=== PATIENT | female | born 1945 | race Caucasian/White ===

== ENCOUNTER 2020-08-05 16:39 | Outpatient (REF) | payer MEDICARE, BC, SELFPAY ==
[2020-08-05 19:33] LABS: BUN 19 mg/dL (7-18); CREATININE 0.7 mg/dL (0.55-1.02); Calcium 9.8 mg/dL (8.5-10.1); Chloride 108 mmol/L (98-107); Glucose 103 mg/dL (74-106); Potassium 4.4 mmol/L (3.5-5.1); Sodium 143 mmol/L (136-145)
== END 2020-08-05 16:40 | disposition home or self-care (01) ==
LOC: NCHCN 16:39
PROVIDERS: Visit Provider Family Medicine
DX: I10 Essential (primary) hypertension (principal)
CPT/HCPCS: 80048

== ENCOUNTER 2022-02-03 15:33 | Outpatient (REF) | payer MEDICARE, BC, SELFPAY ==
[2022-02-03 16:58] LABS: Anion Gap 8.4 mmol/L (3-11); BUN 20 mg/dL (7-18); CO2 28.6 mmol/L (21.0-32.0); CREATININE 0.7 mg/dL (0.55-1.02); Calcium 9.5 mg/dL (8.5-10.1); Chloride 106 mmol/L (98-107); Glucose 103 mg/dL (74-106); Potassium 4.8 mmol/L (3.5-5.1); Sodium 143 mmol/L (136-145)
[2022-02-03 17:20] LABS: Vitamin D 25 Total 54.5 ng/mL (30-100)
== END 2022-02-03 15:34 | disposition home or self-care (01) ==
LOC: NCHCN 15:33
PROVIDERS: Visit Provider Family Medicine
DX: M81.0 Age-related osteoporosis without current pathological fracture (principal); I10 Essential (primary) hypertension
CPT/HCPCS: 80048; 82306

== ENCOUNTER 2023-01-01 16:18 | Outpatient (REF) | payer MEDICARE, BC, SELFPAY ==
[2023-01-03 12:43] LABS: Campylobacter PCR Negative (Negative); Salmonella PCR Negative (Negative); Shiga Toxin PCR Negative (Negative); Shigella/Enteroinvasive Ecoli Negative (Negative)
[2023-01-05 20:11] LABS: Calprotectin <50.0 mcg/g
== END 2023-01-01 16:19 | disposition home or self-care (01) ==
LOC: NCHCN 16:18
PROVIDERS: Visit Provider Family Medicine
DX: R19.7 Diarrhea, unspecified (principal)
CPT/HCPCS: 87329; 87493; 87505; 83993

== ENCOUNTER 2023-08-10 14:15 | Outpatient (REF) | payer MEDICARE, BC, SELFPAY ==
[2023-08-10 19:26] LABS: Calculated LDL 61 mg/dL (<100); Cholesterol 149 mg/dL (<200); HDL Cholesterol 78 mg/dL (40-60); Triglyceride 52 mg/dL (<150)
== END 2023-08-10 14:16 | disposition home or self-care (01) ==
LOC: NCHCN 14:15
PROVIDERS: PCP Family Medicine; Visit Provider Family Medicine
DX: E78.5 Hyperlipidemia, unspecified (principal)
CPT/HCPCS: 80061

== ENCOUNTER 2023-12-11 01:18 | Outpatient (CLI) | payer MEDICARE, BC, SELFPAY ==
--- NOTE | 2023-12-11 | DI.MAMMO_ITS ---
Exam(s) MAMMO SCREENING EXAM: MAMMO SCREENING CLINICAL HISTORY: SCREENING, Z12.31 TECHNIQUE: Mammograms were interpreted according to the usual protocol including computer analysis w [facility] CAD system, tomosynthesis and C-view imaging. COMPARISON: [facility] BREAST SCREENING DAVID BILATERAL from 12/07/2022 and exams back to 2014 from [facility] FINDINGS: The breasts are composed of scattered fibroglandular densities, Breast Density category B. No suspicious masses or suspicious microcalcifications are seen. No skin thickening or abnormal axillary lymph nodes are seen. There has been no significant change from prior exams. IMPRESSION: BI-RADS Category 1, Negative mammogram Yearly screening mammography is recommended. Breast Density - Category B, scattered fibroglandular densities. A negative radiographic report should not delay biopsy if a dominant or clinically suspicious mass is present. Up to ten percent of cancers are not identified on mammography. A negative report may reinforce clinical impression. Adenosis and dense breasts may obscure an underlying neoplasm. False positive reports average 6 to 10%. Patient will receive a letter notifying them of these results.
== END 2023-12-11 01:38 ==
LOC: DI 01:18
PROVIDERS: PCP Family Medicine; Visit Provider Family Medicine
DX: Z12.31 Encounter for screening mammogram for malignant neoplasm of breast (principal)
CPT/HCPCS: 77063; 77067

== ENCOUNTER 2024-08-11 19:04 | Outpatient (REF) | payer MEDICARE, BC, SELFPAY ==
[2024-08-11 22:17] LABS: HCT 36.7 % (36.0-46.0); HGB 12.2 g/dL (11.2-15.7); MCH 30.4 pg (27.0-33.0); MCHC 33.2 % (32.0-36.0); MCV 92 fL (80-95); MPV 12.6 fL (8.0-11.0); Platelet Count 263 10^3/uL (130-400); RBC 4.01 10^6/uL (3.93-5.22); RDW 12.3 % (11.7-14.6); RDW-SD 41.5 fL; WBC 4.95 10^3/uL (4.4-10.8)
[2024-08-11 22:38] LABS: ALT 50 U/L (14-59); AST 32 U/L (15-37); Albumin 3.7 g/dL (3.4-5.0); Alkaline Phosphatase 121 U/L (46-116); Anion Gap 7.2 mmol/L (3-11); BUN 19 mg/dL (7-18); Bilirubin, Total 0.3 mg/dL (0.2-1.0); CO2 26.8 mmol/L (21.0-32.0); CREATININE 0.7 mg/dL (0.55-1.02); Calcium 9.8 mg/dL (8.5-10.1); Chloride 108 mmol/L (98-107); Estimated GFR 89.02 (mL/min/1.73m2); Glucose 109 mg/dL (74-106); NT-proBNP 171 pg/mL (<300); Potassium 4.3 mmol/L (3.5-5.1); Sodium 142 mmol/L (136-145); Total Protein 6.7 g/dL (6.4-8.2)
[2024-08-13 09:47] LABS: Lyme Ab w Rflx to Lyme Confirm Negative (Negative)
[2024-08-14 16:29] LABS: Spotted Fever Group Ab IgG <1:64 (<1:64); Spotted Fever Group Ab IgM <1:64 (<1:64)
[2024-08-15 01:35] LABS: Anaplasma phagocytophilum Negative (Negative); B. miyamotoi PCR Negative (Negative); Babesia divergens/MO-1 Negative (Negative); Babesia duncani Negative (Negative); Babesia microti Negative (Negative); Ehrlichia chaffeensis Negative (Negative); Ehrlichia ewingii/canis Negative (Negative); Ehrlichia muris eauclairensis Negative (Negative)
== END 2024-08-11 19:05 | disposition home or self-care (01) ==
LOC: NCHCN 19:04
PROVIDERS: PCP Family Medicine; Visit Provider Family Medicine
DX: R06.09 Other forms of dyspnea (principal); M25.59 Pain in other specified joint
CPT/HCPCS: 80053; 85027; 87798; 83880; 86618; 86757

== ENCOUNTER 2024-08-19 19:23 | Emergency (ER) | payer MEDICARE, BC, SELFPAY ==
[2024-08-19] VITALS (22 sets, daily range): BP systolic 115–167; BP diastolic 33–59; PULSE 75–109; RESP 8–22; TEMP 37–37.2; O2SAT 91–97
--- NOTE | 2024-08-19 19:30 | DI.CT_ITS ---
Exam(s) CT ABDOMEN PELVIS W EXAM: CT ABDOMEN PELVIS W CLINICAL HISTORY: llq pain fever TECHNIQUE: Imaging Protocol: Axial computed tomography images with coronal and sagittal reformatted images were created and reviewed. CONTRAST MATERIAL: Intravenous: Omnipaque 350 Contrast volume:75 mL Oral: No COMPARISON: No exams were available for comparison FINDINGS: ABDOMEN: Lung Bases: No acute abnormality. Liver: Normal density. No measurable mass. Portal, Superior Mesenteric, and Splenic Veins: Unremarkable. Gallbladder and Biliary Tract: Gallstones are present. There is no significant biliary ductal dilata tion. Pancreas: Normal density, no abnormal calcifications or inflammatory process. Spleen: Normal. There is a benign type calcification in the spleen. Adrenals: No masses seen. Kidneys: Normal size, contour and axis. No radiodense stones or obstructive uropathy. No masses seen. There is a duplicated right renal collecting system. Abdominal Aorta: Abdominal portion non-dilated. Atherosclerotic calcification is present. Bowel: There is diverticulosis of the colon. There is bowel wall thickening and pericolonic inflamma tory change seen in the mid sigmoid colon consistent with acute diverticulitis. There is no evidence of bowel obstruction. The stomach is incompletely distended limiting evaluation. Appendix is unrem arkable. Peritoneal Cavity: No ascites, collection or mesenteric inflammatory response. No free air. Lymph Nodes: Within normal limits. Bones: Within normal limits for the patient's age. Soft Tissues: Unremarkable. There is a small fat containing umbilical hernia. PELVIS: Bladder: Symmetric distention, no gross wall thickening. Reproductive Organs: Unremarkable as visualized. Lymph Nodes: Within normal limits. Bones: Within normal limits for the patient's age. IMPRESSION: 1. Acute diverticulitis involving the sigmoid colon. No abscess or free air. 2. The preliminary [facility] report was reviewed. RADIATION DOSE DELIVERED: 460.36mGy.cm Total DLP DATA REPOSITORY: All CT scans at this facility are submitted to the National Radiology Data Registry (NRDR) Dose Index Registry (DIR) with the [employer] (A[employer]). RADIATION OPTIMIZATION: All CT scans at this facility use at least one of these dose optimization te chniques: automated exposure control; mA and/or kV adjustment per patient size (includes targeted exa ms where dose is matched to clinical indication); or iterative reconstruction.
[2024-08-19] MEDS: Normal Saline 1,000 ML 1000 ML IV (19:53)
[2024-08-19 19:54] LABS: Abs Immature Grans 0.05 10^3/uL (0.0-0.06); Absolute Basophil Count 0.04 10^3/uL (0.0-0.2); Absolute Eosinophil Count 0.04 10^3/uL (0.0-0.7); Absolute Lymphocyte Count 1.39 10^3/uL (1.2-3.4); Absolute Monocyte Count 0.88 10^3/uL (0.1-0.8); Absolute Neutrophil Count 9.29 10^3/uL (1.2-6.7); Basophils % 0.3 %; Eosinophils % 0.3 %; HCT 37.5 % (36.0-46.0); HGB 12.5 g/dL (11.2-15.7); Immature Grans % 0.4 %; Lymphocytes % 11.9 %; MCH 30.3 pg (27.0-33.0); MCHC 33.3 % (32.0-36.0); MCV 91 fL (80-95); MPV 11.5 fL (8.0-11.0); Monocytes % 7.5 %; Neutrophils % 79.6 %; Platelet Count 253 10^3/uL (130-400); RBC 4.12 10^6/uL (3.93-5.22); RDW 12.4 % (11.7-14.6); RDW-SD 41.4 fL; WBC 11.67 10^3/uL (4.4-10.8)
[2024-08-19] MEDS: Normal Saline Flush 10 ML SYR IVP ×2 (19:54→20:27)
[2024-08-19] MEDS: MORPHine 4 MG/ML SYR IVP (19:54)
[2024-08-19] MEDS: Ondansetron 4 MG/2 ML VIAL IVP (19:54)
[2024-08-19 20:04] LABS: INR 1.1 (0.9-1.1); Prothrombin Time 10.6 sec (9.1-11.1)
[2024-08-19 20:08] LABS: ESR 20 mm/hr (0-30)
--- NOTE | 2024-08-19 20:08 | ED.GENADUL_ITS ---
Discharge Plan Disposition Patient Disposition: Home Discharge Details Clinical Impression: Diverticulitis Primary Care Provider: Lanny Wong ED Provider: Diaz Hoskins Home Meds and New Rx's Prescriptions: New metronidazole 500 mg tablet 500 mg PO BID 7 Days Qty: 14 0RF ciprofloxacin HCl 500 mg tablet 500 mg PO BID 7 Days Qty: 14 0RF No Action atorvastatin 10 mg tablet 10 mg PO DAILY Patient Comments: TAKE 1 TABLET BY MOUTH DAILY losartan 25 mg tablet 25 mg PO DAILY Discharge Instructions Instructions: Diverticulitis (DC) Additional Instructions: CT findings consistent with diverticulitis, but your lab work is reassuring. Continue clear liquid diet until symptoms resolved. Tylenol as needed for pain. First dose of antibiotics given in the emergency department tonight and the remainder has been sent to your pharmacy. Please return to the emergency department if your symptoms are worsening, fever or pain or you are not able to tolerate the medication. Otherwise follow-up with your PCP. referral has been placed to general surgery clinic for follow-up colonoscopy. HPI General Date/Time Provider Initiated Documentation: 08/19/24 19:25 . Limitations to Documentation: no limitations . Information obtained by: patient . HPI Narrative: 79-year-old female with past medical history of hypertension presents for evaluation of abdominal pain and fever. The patient reports that her symptoms started yesterday and have been progressively worsening. She reports generalized abdominal pain, worse in the left lower quadrant. Not associated with nausea or vomiting. She reports her stool has been soft, but no diarrhea and no blood in her stool. She reports that she had fever today. Had been taking Tylenol for pain but reports fairly significant pain. Related Data Home Medications ?Medication ?Instructions ?Recorded ?Confirmed atorvastatin 10 mg tablet 10 mg PO DAILY 08/19/24 08/19/24 ciprofloxacin HCl 500 mg tablet 500 mg PO BID 7 days #14 tabs 08/19/24 losartan 25 mg tablet 25 mg PO DAILY 08/19/24 08/19/24 metronidazole 500 mg tablet 500 mg PO BID 7 days #14 tabs 08/19/24 Previous Rx's ?Medication ?Instructions ?Recorded ciprofloxacin HCl 500 mg tablet 500 mg PO BID 7 days #14 tabs 08/19/24 metronidazole 500 mg tablet 500 mg PO BID 7 days #14 tabs 08/19/24 Allergies Allergy/AdvReac Type Severity Reaction Status Date / Time cephalexin (From Keflex) Allergy Mild rash Verified 08/19/24 19:31 Penicillins Allergy Mild rash Verified 08/19/24 19:31 General Stated Complaint: Abd Prob RADHA: 3 Exam Narrative Exam Narrative: Review of Systems: All systems reviewed & are unremarkable except as noted in HPI and below Well-developed, no acute distress afebrile NCAT RRR Unlabored respiratory effort, CTAB Nondistended abdomen , mild generalized tenderness Course Vital Signs Vital signs: Vital Signs Temperature 37.2 C 08/19/24 19:26 Pulse 109 H 08/19/24 19:26 Respiratory Rate 16 08/19/24 19:26 Blood Pressure 167/59 H 08/19/24 19:26 Pulse Oximetry 95 08/19/24 19:26 Temperature 37.2 C 08/19/24 19:32 Pulse 95 H 08/19/24 19:46 Pulse 100 H 08/19/24 19:46 Respiratory Rate 20 08/19/24 19:46 Blood Pressure 155/57 H 08/19/24 19:46 Blood Pressure Mean 88 08/19/24 19:46 Pulse Oximetry 96 08/19/24 19:46 Pain Level 5 08/19/24 19:42 Lab/Test Results Lab/Test Results: Laboratory Tests Range/Units 08/19/24 19:35 WBC (4.4-10.8) 10^3/uL 11.67 H RBC (3.93-5.22) 10^6/uL 4.12 Hgb (11.2-15.7) g/dL 12.5 Hct (36.0-46.0) % 37.5 MCV (80-95) fL 91 MCH (27.0-33.0) pg 30.3 MCHC (32.0-36.0) % 33.3 RDW (11.7-14.6) % 12.4 Plt Count (130-400) 10^3/uL 253 MPV (8.0-11.0) fL 11.5 H Immature Gran % % 0.4 Neutrophils % % 79.6 Lymphocytes % % 11.9 Monocytes % % 7.5 Eosinophils % % 0.3 Basophils % % 0.3 Nucleated RBC % (0.0-0.3) % 0.0 Absolute Neutrophils (1.2-6.7) 10^3/uL 9.29 H Absolute Lymphocytes (1.2-3.4) 10^3/uL 1.39 Absolute Monocytes (0.1-0.8) 10^3/uL 0.88 H Absolute Eosinophils (0.0-0.7) 10^3/uL 0.04 Absolute Basophils (0.0-0.2) 10^3/uL 0.04 PT (9.1-11.1) sec 10.6 INR (0.9-1.1) 1.1 Medical Decision Making Emergent evaluation of abdominal pain and fever. Initial differential includes diverticulitis, colitis, urinary tract infection. Mild abdominal pain. Symptoms consistent consistent with prior episodes of diverticulitis. Afebrile here mild tachycardia on presentation that improved in the room. Plan for labs laboratory markers and CT imaging. Will give IV fluids and pain control. Lab work reviewed. Mild leukocytosis. No anemia. No elevation in ESR, CRP slightly elevated at 7.3. CT scan reviewed and there is sign of sigmoid diverticulitis without signs of perforation or abscess development. The patient reports that she is feeling much better after treatment in the emergency department. She would like to go home for treatment. I think based on her lab work and vital signs this is a reasonable option. I will start her on antibiotics. Due to her penicillin allergy, will treat with Flagyl and ciprofloxacin. First dose given in the emergency department. Return pre cautions advised. The patient does have a colonoscopy scheduled in December, but have referred her to general surgery clinic for closer follow-up after resolution of her acute infection. Quality:SDOH Health Related Social Needs: No Data to Display PFSH All Active Problems (Updated 08/19/24 @ 21:11 by Diaz Hoskins MD) Diverticulitis (Chronic) Social History Smoking risk assessment performed?: No Substance use type: does not use
[2024-08-19 20:10] LABS: ALT 25 U/L (14-59); AST 17 U/L (15-37); Albumin 3.7 g/dL (3.4-5.0); Alkaline Phosphatase 98 U/L (46-116); BUN 15 mg/dL (7-18); CREATININE 0.8 mg/dL (0.55-1.02); Calcium 9.6 mg/dL (8.5-10.1); Chloride 104 mmol/L (98-107); Estimated GFR 75.84 (mL/min/1.73m2); Glucose 101 mg/dL (74-106); Potassium 3.8 mmol/L (3.5-5.1); Sodium 141 mmol/L (136-145)
[2024-08-19] MEDS: Omnipaque 350 MG/ML 100 ML BTL IJ (20:13)
[2024-08-19 20:18] LABS: C-Reactive Protein 7.31 mg/dL (<or=0.5); Lipase 30 U/L (<78)
[2024-08-19] MEDS: Normal Saline - Diluent 50 ML VIAL IJ (20:26)
--- NOTE | 2024-08-19 21:01 | DI.[facility]_ITS ---
PROCEDURE INFORMATION: Exam: CT Abdomen And Pelvis With Contrast Exam date and time: 08/19/2024 8:17 PM Age: 79 years old Clinical indication: Abdominal pain; Localized; Left lower quadrant (llq); Llq pain, fever TECHNIQUE: Imaging protocol: Computed tomography of the abdomen and pelvis with contrast. Radiation optimization: All CT scans at this facility use at least one of these dose optimization techniques: automated exposure control; mA and/or kV adjustment per patient size (includes targeted exams where dose is matched to clinical indication); or iterative reconstruction. Contrast material: OMNIPAQUE 350; Contrast volume: 75 ml; Contrast route: INTRAVENOUS (IV); COMPARISON: No relevant prior studies available. FINDINGS: Liver: Normal. No mass. Gallbladder and biliary ducts: Stones at the gallbladder. Pancreas: Normal. No ductal dilation. Spleen: Normal. No splenomegaly. Adrenal glands: Normal. No mass. Kidneys and ureters: Normal. No hydronephrosis. Stomach and bowel: Colonic diverticulosis. Wall thickening and inflammatory change at the sigmoid colon consistent with acute diverticulitis. No evidence of perforation at this time. Appendix: No evidence of appendicitis. Intraperitoneal space: Unremarkable. No free air. No significant fluid collection. Vasculature: Aorta demonstrates moderate atherosclerotic calcification. No abdominal aortic aneurysm. Lymph nodes: Unremarkable. No enlarged lymph nodes. Urinary bladder: Unremarkable as visualized. Reproductive: Unremarkable as visualized. Bones/joints: Grade 1 anterolisthesis L4-L5 which appears degenerative in nature. Soft tissues: Unremarkable. IMPRESSION: 1. Diverticulitis sigmoid colon. 2. Cholelithiasis. Dictated and Authenticated by: Miki Patterson MD. Orderin Aidee Roman MD
[2024-08-19] MEDS: Ciprofloxacin 500 MG TAB PO (21:14)
[2024-08-19] MEDS: metroNIDAZOLE 500 MG TAB PO (21:14)
[2024-08-19] MEDS: Ondansetron O.D.T. 4 MG TABEF, 3 TABS/BTL PO (21:15)
== END 2024-08-19 21:27 | disposition home or self-care (01) ==
PROVIDERS: Emergency Provider Emergency Medicine; PCP Family Medicine
DX: K57.32 Diverticulitis of large intestine without perforation or abscess without bleeding (principal); I10 Essential (primary) hypertension
CPT/HCPCS: 80053; 83690; 85652; 96361; 96374; 96375; 99285; 74177; 85025; 85610; 86140; J2270; J2405; J3490

== ENCOUNTER 2024-08-28 03:27 | Outpatient (CLI) | payer MEDICARE, BC, SELFPAY | END 2024-08-28 03:28 | disposition home or self-care (01) | LOC: RT 03:27 | PROVIDERS: PCP Family Medicine; Visit Provider Family Medicine | DX: G47.34 Idiopathic sleep related nonobstructive alveolar hypoventilation (principal) | CPT/HCPCS: 94762 ==

== ENCOUNTER 2024-09-05 00:27 | Outpatient (CLI) | payer MEDICARE, BC, SELFPAY ==
--- NOTE | 2024-09-05 | DI.US_ITS ---
APPROVED REPORT EXAM: Comprehensive 2D, Doppler, and color-flow Echocardiogram Patient Location: Out-Patient Guest Services Manager: Mary Brothers RDCS (AE) Indications: Other forms of dyspnea, Dyspnea on exertion, HTN Other Information Study Quality: Good Conclusion Normal left ventricular wall thickness and chamber size. Ejection fraction is 60 to 65%. Wall motio n is normal Normal right ventricular size and function Both atria are normal in size There is no structural or hemodynamically significant valvular disease Wall motion Left Ventricle The left ventricle is normal size. The left ventricular systolic function is normal. The left ventric ular ejection fraction is within the normal range. There is normal left ventricular wall thickness. T here is normal LV segmental wall motion. There is no ventricular septal defect visualized. LVEF is 60 -65%. Right Ventricle The right ventricle is normal size. The right ventricular systolic function is normal. Atria The left atrium size is normal. The right atrium size is normal. The interatrial septum is intact wit h no evidence for an atrial septal defect. Aortic Valve The aortic valve is normal in structure. Aortic valve is trileaflet. There is no aortic valvular sten osis. Trivial aortic regurgitation. Mitral Valve The mitral valve is normal in structure. No evidence of mitral valve stenosis. Trace mitral regurgita tion. Tricuspid Valve The tricuspid valve is normal in structure. There is no tricuspid valve stenosis. Trace tricuspid reg urgitation. Unable to assess PA pressure. Pulmonic Valve The pulmonary valve is normal in structure. There is no pulmonic valvular stenosis. There is no pulmo ramya valvular regurgitation. Great Vessels The aortic root is normal in size. The ascending aorta is normal in size. Aortic arch is normal in ca liber. IVC is normal in size and collapses >50% with inspiration. Pericardium There is no pericardial effusion. 2D Dimensions IVSD d PLAX 0.80 cm F: 0.6-1.0 Ao Root d 2.64 cm F: 2.7 - 3.3 LVPW d PLAX 0.80 cm F: 0.6 - 1.0 Ao Asc Diam d 3.24 cm F: 2.3 - 3.1 LVID d PLAX 5.10 cm F: 3.8 - 5.2 LVDs 3.30 cm F: 2.2 - 3.5 LV EF Teichholz 63.7 % FS 34.76 % LV EDV (Teich) 121.6 mL LV ESV (Teich) 44.2 mL M-Mode TAPSE 2.61 cm (M/F) >1.7 Auto EF LV EDV A4C 83.7 mL LV EDV A2C 93.0 mL LV EDV BP 88.9 mL LV ESV A4C 33.4 mL LV ESV A2C 36.2 mL LV ESV BP 34.9 mL LVEF(%) A4C 60.1 % LVEF(%) A2C 61.0 % LVEF(%) BP 60.8 % LV SV A4C 50.3 ml LV SV A2C 56.7 ml LV SV BP 54.0 ml LV CO A4C 2.9 L/min LV CO A2C 3.4 L/min LV CO BP 3.2 L/min HR A4C 58.63 BPM HR A2C 60.00 BPM LV EDV Index (BP) LA Volume LA Length A4C 5.9 cm LA Length A2C 5.4 cm LA Area A4C s 20.56 cm2 LA Area A2C s 19.71 cm2 LA Vol A4C A-L 60.92 mL LA Vol A2C A-L 61.33 mL LA Vol Biplane A-L 64.0 mL LA Vol/BSA A4C A-L LA Vol/BSA A2C A-L LA Vol/BSA BP A-L 35.5 mL/m2 LA Vol A4C MOD 56.5 mL LA Vol A2C MOD 56.7 mL LA Vol BP MOD 58.8 mL RA Volume RA Area A4C 13.0 cm2 RA ESV A4C (A-L) 31.3mL RA Vol/BSA A4C A-L RA Length A4C 4.6 cm RA ESV A4C (MOD) 29.1mL LV Diastology MV E' medial 0.087 (>0.07 m/s) MV E Vmax 1.14 (0.4-1.3 m/s) MV E/E' MED 13.00 (<14) MV A Vmax 1.25 (0.4-1.3 m/s) MV E' lateral 0.077 (>0.1 m/s) E/A Ratio 0.9 MV E/E' LAT 14.82 (<14) MV E' Average 0.082 m/s MV E/E'(average) 13.85 Aortic Valve AoV Vmax 1.61 m/s LVOT Vmax 1.21 m/s AoV Peak Grad 10.4 mmHg LVOT Peak Grad 5.8 mmHg AoV Area (Vmax) 2.24 cm2 LVOT VTI 0.291 m AoV VTI 0.383 m LVOT Mean Grad 3.1 mmHg AoV Mean Miguel. 1.12 m/s LVOT SV 86.99 mL AoV Mean Grad 5.6 mmHg LVOT Diam s 1.95 cm AoV Area (VTI) 2.27 cm2 AV Regurg Peak Gr. 10.36 mmHg Velocity Ratio 0.75 Mitral Valve MV DT 255 (160-240 msec) MV Vmax TIPS 1.13 m/s MV Mean Grad 2.2 (<2mmHg) MV VTI 0.387 m Pulmonary Valve PV Vmax 1.17 (0.5-1.5 m/s) RVOT Vmax 0.93 m/s PV Peak Grad 5.5 mmHg RVOT Peak Gr. 3.5 mmHg PV Mean Miguel 0.95 m/s RVOT VTI 0.227 m PV Mean Grad 3.7 mmHg RVOT Mean Gr. 2.2 mmHg Tricuspid Valve RA Pressure 3.00 mmHg TV S' 0.14 m/s
== END 2024-09-05 00:47 ==
LOC: DI 00:28
PROVIDERS: PCP Family Medicine; Visit Provider Internal Medicine Cardiovascular Disease
DX: R06.09 Other forms of dyspnea (principal)
CPT/HCPCS: 93306

== ENCOUNTER → 2024-10-23 08:29 | Outpatient (BNVA) | payer MEDICARE, BC, SELFPAY | PROVIDERS: PCP Family Medicine; Referring Provider Family Medicine; Visit Provider Surgery | DX: Z12.11 Encounter for screening for malignant neoplasm of colon (principal); Z80.0 Family history of malignant neoplasm of digestive organs | CPT/HCPCS: S0285 ==

== ENCOUNTER 2024-11-25 08:12 | Day surgery (SDC) | payer MEDICARE, BC, SELFPAY ==
--- NOTE | 2024-11-24 16:25 | W.PREOPHP ---
Assessment and Plan Assessment and plan (1) Encounter for screening colonoscopy: Status: Acute Assessment and plan: We reviewed the plan for screening colonoscopy 1 more time, and Lalita had the chance to ask any new questions. We can proceed with colonoscopy as planned History of Present Illness History of Present Illness Chief Complaint: Screening colonoscopy Narrative: Lalita is 79 years old, she is due for her next screening colonoscopy. She has undergone colonoscopies in the past, the most recent of which was about 5 years ago. She carries a family history of a brother with rectal cancer, as well as a paternal grandmother with colon cancer. As she understands, her mother has had colon polyps, but no definitive diagnosis of cancer. Lalita also carries a diagnosis of diverticulosis, with several episodes of diverticulitis. The last episode was in July of this year. She underwent a CT scan that demonstrated sigmoid diverticulitis. She was treated with Cipro and Flagyl (which she has also been treated with in the past) and enjoyed improvement of her symptoms several days later. Since then she has been feeling well. She does not subscribe to any particular diet. She has never identified any particular trigger foods for her diverticulitis. She has had no abdominal surgical history. There have been no major changes with regards to the interval history since her last visit. 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 Hx of breast biopsy R, benign H/O arthroscopy of left knee Hx of tonsillectomy 1964 Social History Smoking/Tobacco Use Status: Never Smoking risk assessment performed?: Yes Alcohol Intake: current Alcohol Intake frequency: 0-2 drinks per day Alcohol type: wine Drug use: Never Substance use type: does not use Do you feel safe at home: Yes Do you feel safe in your relationship?: Yes Meds Allergies and Home Medications Allergies Allergy/AdvReac Type Severity Reaction Status Date / Time cephalexin (From Keflex) Allergy Mild rash Verified 11/25/24 08:33 Penicillins Allergy Mild rash Verified 11/25/24 08:33 Home Medications ?Medication ?Instructions ?Recorded ?Confirmed ?Type atorvastatin 10 mg tablet 10 mg PO DAILY 08/19/24 11/25/24 History losartan 25 mg tablet 25 mg PO DAILY 08/19/24 11/25/24 History acetaminophen 650 mg 650 mg PO Q12H 10/23/24 11/25/24 History tablet,extended release (Tylenol Arthritis Pain) calcium carbonate 600 mg PO DAILY 10/23/24 11/25/24 History cholecalciferol (vitamin D3) 25 25 mcg PO DAILY 10/23/24 11/25/24 History mcg (1,000 unit) capsule Exam Const General: cooperative, healthy appearing and not in acute distress Neck Neck: normal visual inspection, no lymphadenopathy and supple Resp Effort & Inspection: normal respiratory effort Auscultation: clear to auscultation bilaterally Cardio Jugular venous pressure: no JVD Rate: regular rate Rhythm: regular rhythm Heart Sounds: S1 normal and S2 normal GI Inspection: normal to inspection Palpation: soft, no guarding, no hernias and nontender Percussion: normal to percussion Auscultation: normal bowel sounds Neuro General: patient alert, patient awake and patient oriented x3 Psych Appearance: grossly normal
--- NOTE | 2024-11-24 16:26 | W.PM.DSUDISC ---
Date of service: 11/25/24 Discharge Plan Disposition Patient Disposition: Home Condition: Good Discharge Details Reason For Visit: Screening colonoscopy Attending Provider: Ephraim Purcell Primary Care Provider: Lanny Wong Home Meds and New Rx's Prescriptions: Continued acetaminophen [Tylenol Arthritis Pain] 650 mg tablet extended release 650 mg PO Q12H calcium carbonate 600 mg calcium (1,500 mg) tablet 600 mg PO DAILY cholecalciferol (vitamin D3) 25 mcg (1,000 unit) capsule 25 mcg PO DAILY atorvastatin 10 mg tablet 10 mg PO DAILY Patient Comments: TAKE 1 TABLET BY MOUTH DAILY losartan 25 mg tablet 25 mg PO DAILY Discontinued bisacodyl [Dulcolax (bisacodyl)] 5 mg tablet,delayed release (DR/EC) 5 mg PO ONCE Qty: 4 0RF Rx Instructions: take per colonoscopy instructions polyethylene glycol 3350 17 gram/dose powder 238 g PO ONCE Qty: 238 0RF Rx Instructions: take per colonoscopy instructions Discharge Instructions Instructions: Colon polyps, Diverticulosis Additional Instructions: Lalita, is very nice seeing you again today. Again, I really appreciate your patience through the day. I hope you feel well after your procedure. Things went very smoothly. Your prep was outstanding and I could see everything fine. I found, and removed 1 single polyp today. This was quite small, nothing worrisome at all to the naked eye. I will send this to the pathologist for them to review. Polyps, different types, we use the information from their analysis to help guide the timing of future colonoscopies. And as you already know, you do have diverticulosis. It is most heavily concentrated in the sigmoid segment, which is the most common place for patients to develop diverticulosis. You do have a few diverticula scattered throughout the other areas of your colon as well. Diverticula are weak spots in the muscular layer of the cause of the inside lining, or mucosa, to pocket her pouch outwards a little bit. They never go away, and the standard treatment typically aimed at reducing symptoms from diverticulosis. It seems like you are already well ahead of that. I will attach some basic information here regarding typical approaches to diverticular disease. But as we discussed, generally I recommend that patients maintain a diet that is rich in fiber, targeting soft bulky stools, consume healthy amounts of free water through the course of the day to avoid dehydration, and minimize any symptoms of constipation. There is an operation that can be performed to remove the segment of the colon, but I would not recommend that for someone with your history. If you need anything, or have any questions at all, please do not hesitate to ask, otherwise my office will be in touch once we have the reports of the polyp analysis. 1. If tolerated, consume a soft, low fiber diet for 1-2 days. [address] Do not drive, drink alcohol, operate machinery, make critical decisions, or do activities that require coordination or balance for 24 hours. 3. Because air was put into your colon during the procedure, expelling air from your rectum (passing gas or farting) is normal. 4. You may not have a bowel movement for 1-3 days because of the colonoscopy prep. This is normal. 5. Go directly to the emergency room if you notice any of the following: Develop chills (warm to touch), or if you have a thermometer and your temperature is above 101 Difficulty breathing or difficultly swallowing Persistent vomiting Severe abdominal pain, other than gas cramps Severe chest pain Black, tarry stools Any bleeding ? exceeding one tablespoon 6. Call your physician if the site where your intravenous was started becomes red, swollen, painful, and warm to touch. 7. Your physician has reviewed your pre-procedure medications. Please continue to take those medications as previously ordered. You will be given specific information/education regarding any changes to your medications before leaving. Activity:: Activity as Tolerated Diet:: As Tolerated Discharge Orders Discharge Orders: Discharge Order (Routine); Ordered 11/24/24 Ordered By: Ephraim Purcell DS: Diagnosis Discharge Diagnosis (1) Encounter for screening colonoscopy: Status: Acute Asessment and Plan: Follow-up on polypectomy results
--- NOTE | 2024-11-24 16:28 | W.COLOREPORT ---
Date of service: 11/25/24 Time of Service: 11:59 Colonoscopy Report Date of procedure: 11/25/24 Pre-op diagnosis general: Screening colonoscopy Post-op diagnosis procedure note: other (Colon polyp, diverticulosis) Procedure: Colonoscopy with polypectomy Surgeon: Ephraim Purcell Anesthesia Type: General:No Airway Estimated blood loss (mL): 5 Pathology: other (0.25 cm flat polyp at 60 cm) Complications: None Disposition: same day Indications: Lalita is a 79-year-old woman who needs her next screening colonoscopy Prep: Miralax/Dulcolax Procedure Start Time: 11:34 Procedure End Time: 11:48 Retraction Time: 7 Findings: Sigmoid diverticulosis, 0.25 cm flat polyp at 60 cm Procedure Description: After the induction of anesthesia, and with the patient in left lateral decubitus position, I began by performing an external anorectal exam.? Perineum and skin were normal, as was the anal verge.? There was no evidence of external hemorrhoids.? Next, I performed a digital rectal exam.? I did not appreciate any abnormal findings.? Next, I advanced a colonoscope into the rectal vault.? I performed retroflexion.? This appeared normal.? Using irrigation, I then advanced the colonoscope beyond the rectal folds and into the sigmoid colon before advancing towards the cecum.? There is diverticulosis most heavily concentrated in the sigmoid segment. I saw no evidence of any colitis associated with this. There are a few scattered diverticula scattered through the transverse and ascending colon as well..? The scope was noted to be in the cecum by identification of the ileocecal valve and appendiceal orifice.? I then began withdrawing the colonoscope using repeated irrigation as necessary for full evaluation of the colonic mucosa. Around 60 cm from the anal verge I identified a 0.25 cm polyp. ?It appeared flat in character. ?I was able to remove this with a cold forcep polypectomy. ?I examined the site, and there was minimal bleeding. ?Once this was completed, I continued to withdraw the scope and examine the remainder of the colonic mucosa.?Once the scope was withdrawn to the level of the rectum, great care was taken to examine portions of the rectal folds.? Finally, the scope was withdrawn and the patient was brought to the same-day surgery recovery unit as the anesthetic wore off. ?The findings and instructions were shared with the patient prior to discharge. [place] Bowel Prep [place] Bowel Prep Right Colon: 3 Left Colon: 3 Transverse Colon: 3 Total Score: 9
[2024-11-25 08:34] VITALS: BP 133/66; PULSE 64; RESP 16; TEMP 36.6; O2SAT 98
[2024-11-25] MEDS: Lactated Ringers 1,000 ML 80 ML IV (08:44)
--- NOTE | 2024-11-25 08:54 | W.ANESPRE ---
General Info Date of Service Date Performed: 11/25/24 Height: 5 ft 3 in Weight: 76.2 kg Body Mass Index (BMI): 29.7 Surgical Procedure: Operation Date: 11/25/24 09:05 Proposed Procedure Side Surgeon rhina Purcell MD Meds Allergies and Home Medications Allergies Allergy/AdvReac Type Severity Reaction Status Date / Time cephalexin (From Keflex) Allergy Mild rash Verified 11/25/24 08:33 Penicillins Allergy Mild rash Verified 11/25/24 08:33 Home Medication ?Medication ?Instructions ?Recorded atorvastatin 10 mg tablet 10 mg PO DAILY 08/19/24 losartan 25 mg tablet 25 mg PO DAILY 08/19/24 acetaminophen 650 mg 650 mg PO Q12H 10/23/24 tablet,extended release (Tylenol Arthritis Pain) calcium carbonate 600 mg PO DAILY 10/23/24 cholecalciferol (vitamin D3) 25 25 mcg PO DAILY 10/23/24 mcg (1,000 unit) capsule Current Visit Medications: Current Medications Generic Name Dose Route Start Last Admin Trade Name Freq PRN Reason Stop Dose Admin Ringer's Solution 1,000 mls @ 80 mls/hr 11/25/24 06:00 11/25/24 08:44 IV 11/25/24 23:59 80 mls/hr INFUSION LISANDRO Administration IV Miscellaneous Supplies 1 each 11/25/24 06:00 Iv Access IV 11/25/24 23:59 DIRECTED LISANDRO Ondansetron HCl 4 mg 11/24/24 16:25 Ondansetron 4 Mg/2 Ml Vial IVP 12/24/24 16:24 Q4H PRN PRN Nausea / Vomiting Sodium Chloride 0 ml 11/25/24 06:00 Normal Saline Flush 10 Ml Syr IV 11/25/24 23:59 PRN PRN Sodium Chloride 0 ml 11/25/24 06:00 Normal Saline 10 Ml Vial IJ 11/25/24 23:59 DIRECTED PRN Sterile Water 0 ml 11/25/24 06:00 Water,Injection,Sterile 10 Ml Vial IJ 11/25/24 23:59 DIRECTED PRN PFSH Active Problems Active Problems: Problem Status Onset Code CHAMBERLAIN (dyspnea on exertion) Acute R06.09 Osteopenia Acute M85.80 Encounter for screening colonoscopy Acute Z12.11 Medical History Medical History Trochanteric fracture 2019 History of revision of total replacement of right knee joint DVT (deep venous thrombosis) pt reports this occurred because she was sick and flying home on a long flight Right fibular fracture Right wrist fracture Surgical History Surgical History 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 Hx of breast biopsy R, benign H/O arthroscopy of left knee Hx of tonsillectomy 1964 Tobacco Smoking/Tobacco Use Status: Never Alcohol Alcohol Intake: current Alcohol intake frequency: 0-2 drinks per day Alcohol type: wine Substance Use Substance use: Never Substance use type: does not use Vital Signs and Lab Results Vital Signs Most Recent Vital Signs in EMR: Most Recent Vital Signs Temp Pulse Resp BP Pulse Ox 36.6 C 64 16 133/66 98 11/25/24 08:34 11/25/24 08:34 11/25/24 08:34 11/25/24 08:34 11/25/24 08:34 Imaging and Studies Imaging and Studies Study information below may be from another EMR and interpreted by another provider. Please see original notes in EMR for more complete details. Echocardiogram Summary: 08/2024:Conclusion Normal left ventricular wall thickness and chamber size. Ejection fraction is 60 to 65%. Wall motion is normal Normal right ventricular size and function Both atria are normal in size There is no structural or hemodynamically significant valvular disease Anesthesia Assessment and Plan Anesthesia History Personal History: No History of Anesthesia Complications Family History: No Family History of Anesthesia Complications Exercise Tolerance Exercise Tolerance: Metabolic Equivalents>4 Pertinent Negatives Pertinent Negatives: No Symptoms of GERD, No Major Cardiovascular Symptoms or Complaints, No Major Pulmonary Symptoms or Complaints and No History of CVA/TIA Cardiac & Pulmonary Exam Cardiac Exam: Normal S1/S2 Heart Sounds Pulmonary Exam: Clear Bilateral Breath Sounds Implantable Cardiac Device Does patient have a Pacemaker or an ICD?: No Airway Exam Known Difficult Airway: No Mallampati Class: 1 Mouth Opening: Normal (> 3cm) Thyromental Distance: Greater than 3 cm Neck Range of Motion: Full ROM Neck Circumference: Normal Teeth Condition: Normal Dentition ASA Classification ASA Score: ASA 2 Emergency Case?: No NPO Status NPO Status: NPO Clears >2 hours, Solids >8 hours Anesthesia Plan Resuscitation Status: Full Code Anesthesia Technique: General Anesthesia Airway Planned: Natural Airway Monitors Used: Standard Monitors
[2024-11-25 08:56] VITALS: BMI 29.7
--- NOTE | 2024-11-25 11:44 | BOWEL_PTH ---
PATIENT: Lalita Velazquez LOC: [facility] U#:[id number] AGE/SX: 79/F ROOM: RE11/25/[address]: Ephraim Purcell MD : [id number] BED: DIS: 11/25/2024 SPEC #: [id number] RECD: 11/25/24 12:45 STATUS: KATLIN RE #: [id number] DEREK: 11/25/24 11:[address]: Ephraim Purcell DEPT: Surgical Specimen RECD BY: Malinda Gonzalez ENTERED: 11/25/24 12:45 SP TYPE: Bowel OTHR DR: Lanny Wong Tissues: 1 - BIOPSY BOWEL Procedures: GROSS AND MICRO LEVEL 4 Comments: [id number]
[2024-11-25 11:54] VITALS: BP 107/56; PULSE 67; RESP 16; TEMP 36.3; O2SAT 98
[2024-11-25 12:21] VITALS: BP 125/60; PULSE 54; RESP 16; TEMP 36.3; O2SAT 99
--- NOTE | 2024-11-25 13:06 | W.ANESPOSTOP ---
Postoperative Evaluation Date, Time and Location Date Performed: 11/25/24 Time Performed: 13:07 Patient Location: Day Surgery Unit Vital Signs Most Recent Imported Vital Signs: Most Recent Vital Signs Temp Pulse Resp BP Pulse Ox 36.3 C L 54 L 16 125/60 99 11/25/24 12:21 11/25/24 12:21 11/25/24 12:21 11/25/24 12:21 11/25/24 12:21 Pain Score Most Recent Pain Score: Most Recent Pain Score Pain Level 0 11/25/24 12:21 Assessment Mental Status: Awake (Alert & Oriented to Patient Baseline) Airway and Respiratory Function: Patent airway with normal (patient baseline) respiratory exam Cardiovascular Function: Hemodynamically Stable Hydration Status: Adequately Hydrated Nausea & Vomiting: No Nausea or Vomiting Pain: Pt. Denies Any Pain Peripheral Nerve Block: Patient did not receive a nerve block
== END 2024-11-25 12:55 | disposition home or self-care (01) ==
PROVIDERS: PCP Family Medicine; Visit Provider Surgery
PROC: 0DJD8ZZ Inspection of Lower Intestinal Tract, Via Natural or Artificial Opening Endoscopic (ICD-10-PCS; CPT 45378; principal; 2024-11-25 09:00)
DX: Z12.11 Encounter for screening for malignant neoplasm of colon (principal); K63.5 Polyp of colon; K57.30 Diverticulosis of large intestine without perforation or abscess without bleeding
CPT/HCPCS: 45380; 88305; J2704

== ENCOUNTER 2024-12-17 01:42 | Outpatient (CLI) | payer MEDICARE, BC, SELFPAY ==
--- NOTE | 2024-12-17 09:29 | DI.MAMMO_ITS ---
Exam(s) MAMMO SCREENING EXAM: MAMMO SCREENING CLINICAL HISTORY: SCREENING MAMMO Z12.31. TECHNIQUE: Bilateral full field digital CC and MLO mammographic images were obtained with 3D tomosynthesis and utilizing computer aided detection (CAD). COMPARISON: Prior mammograms were reviewed. FINDINGS: There are no new significant left breast findings. In the right breast there is a noncalcified nodule located 7 cm in from the nipple which is unchanged from 2016 therefore benign. There are no new spiculated masses nor new malignant appearing microcalcification groups. There is no significant architectural distortion nor skin thickening-retraction. IMPRESSION: Stable line findings. No radiographic evidence of malignancy. BI-RADS Category 2 - Benign Findings Breast Density - Category B - There are scattered areas of fibroglandular density. Breast density Category C or D implies that the patient has dense breast tissue. Dense breast tissue can make it harder to find cancer on a mammogram. Dense breast tissue is also associated with an increased risk of breast cancer. This information about the result of the mammogram report was provided to the patient to raise their awareness. Use this report when you speak with the patient about their risks for breast cancer, which includes their family history. At that time, you may recommend additional screening tests (Ultrasound or MRI) as these tests may add significant information. A negative radiographic report should not delay biopsy if a dominant or clinically suspicious mass is present. Up to ten percent of cancers are not identified on mammography. A negative report may reinforce clinical impression. Adenosis and dense breasts may obscure an underlying neoplasm. False positive reports average 6 to 10%. Patient will receive a letter notifying them of these results.
== END 2024-12-17 02:02 ==
LOC: DI 01:42
PROVIDERS: PCP Family Medicine; Visit Provider Family Medicine
DX: Z12.31 Encounter for screening mammogram for malignant neoplasm of breast (principal)
CPT/HCPCS: 77063; 77067